=== PATIENT | female | born 1995 | race African-American/Black ===

== ENCOUNTER 2016-10-28 12:37 | Emergency (ER) | payer MEDICAID ==
--- NOTE | 2016-10-28 13:01 | ED Physician Chart ---
Chief Complaint/HPI - Patient Information Date Seen:: 10/28/16 Time Seen:: 13:01 Chief Complaint:: DIARRHEA X 3 DAYS, LIGHTHEADED History of Present Illness:: This 21-year-old female presents with a three-day history of diarrhea with a total of 7-8 episodes. She also has nausea but no vomiting. Denies any abdominal pain. Has lost her appetite. Patient states that when she stands up too fast she feels lightheaded. Had a syncopal episode a month or so ago. Is currently on her menstrual period. Had 1 prior that resulted in in a miscarriage. No history of prior surgeries in the patient denies a history of any medical problems. She smoked crystal met earlier today. No fever and no chills. Patient thinks that she may have eaten some bad food. Allergies:: Allergies Allergy/AdvReac Type Severity Reaction Status Date / Time No Known Allergies Allergy Verified 10/28/16 12:48 Vitals:: Vital Signs - 8 hr 10/28/16 12:51 BP 129/86 Review of Systems - Review of Systems General/Constitutional: No fever, No chills, No weakness, Diaphoresis, No edema , Loss of appetite Skin: No skin lesions, No rash Head: No headache, Light headed Eyes: No loss of vision, No pain (patient states that she has allergies and that her eyes have been red and watery.), No diplopia ENT: No earache, No nasal drainage, No sore throat Neck: No neck pain, No stiffness Cardio Vascular: No chest pain, No palpitations, No PND, No orthopnea, No edema Pulmonary: No SOB, No cough, No sputum, No wheezing GI: Nausea, No vomiting, Diarrhea, No pain, No melena, No constipation, No hematemesis G/U: No dysuria, No frequency, No hematuria Freight Sorter: Other (patient is currently having her menstrual period. ) Endocrine: No polyuria, No polydipsia Psychiatric: No prior psych history, No depression, No suicidal ideation Hematopoietic: No bruising, No lymphadenopathy Allergic/Immuno: No urticaria, No angioedema Neurological: Syncope (syncopal episode approximately one month ago.), No focal symptoms, No weakness, No paresthesia, No headache, No seizure, Dizziness (has lightheadedness when she stands up too quickly.), No confusion, No vertigo Past Medical History - Past Medical History Past Medical History: No significant medical hx Family History: None Social History: Smoker, No Alcohol, Illicit Drug Use, Single, Employed (works as a office cashier.) Employment:: Admits to using methamphetamine earlier today. She lives with her brother. Family Medical History - Family Member Mother Ethnicity: Non- Living Status: Still Living Hx Family Cancer: Yes Hx Family Coronary Artery Disease: No Hx Family Congestive Heart Failure: No Hx Family Hypertension: No Hx Family Stroke: No Hx Family Diabetes: No Hx Family Seizures: No Hx Family Dementia: No Hx Family AIDS: No Hx Family HIV: No Hx Family COPD: No Hx Family Hepatitis: No Hx Family Psychiatric Problems: No Hx Family Tuberculosis: No Physical Exam - Physical Examination General/Constitutional: Awake, Well-developed, well-nourished, Alert, No distress, Non-toxic appearing, Ambulatory Head: Atraumatic Eyes: PERRL, EOMI (patient has hyperemia of both conjunctiva. She also has tears bilaterally.) Skin: No rash, No skin lesions, No ecchymosis, Well hydrated, No lymphadenopathy ENMT: External ears, nose nl, TM canals nl, Nasal exam nl, Lips, teeth, gums nl , Oropharynx nl, Tonsils nl Neck: Nontender, Full ROM w/o pain, No JVD, No nuchal rigidity, No mass, No stridor Respiratory: Nl effort/Exclusion, Clear to Auscultation, No Wheeze/Rhonchi/Rales Cardio Vascular: RRR, No murmur, gallop, rubs, NL S1 S2 Other Cardio Vascular comments:: Strong pulses in all 4 extremities. GI: No tenderness/rebounding/guarding, No organomegaly, No hernia, Normal BS's, Nondistended, No mass/bruits, No McBurney tenderness Other GI comments:: Rectal examination was deferred at my discretion. : No CVA tenderness Extremities: No tenderness or effusion, Full ROM, normal strength in all extremities, No edema, Normal digits & nails Neuro/Psych: Alert/oriented, Normal sensory exam, Normal motor strength, Mood normal, Normal gait, No focal deficits Misc: Normal back, No paraspinal tenderness Labs/Radiology/EKG Results - Lab Results Results: Laboratory Tests 10/28/16 10/28/16 10/28/16 13:12 13:12 13:12 WBC 6.5 RBC 4.83 Hgb 13.0 Hct 38.8 MCV 80.4 L MCH 26.9 L MCHC Differential 33.4 RDW 13.8 Plt Count 237 MPV 9.3 Neutrophils % 57.8 Lymphocytes % 35.0 Monocytes % 3.4 Eosinophils % 1.3 Basophils % 2.5 H Sodium 134 L Potassium 3.1 L Chloride 107 Carbon Dioxide 25.9 Anion Gap 4.2 L BUN 12 Creatinine 0.8 Est GFR ( Amer) > 60.0 Est GFR (Non-Af Amer) > 60.0 BUN/Creatinine Ratio 15.0 Glucose 104 Calcium 9.2 Urine Source Urine Color Urine Clarity Urine pH Ur Specific Telephone Urine Protein Urine Glucose (UA) Urine Ketones Urine Blood Urine Nitrate Urine Bilirubin Urine Urobilinogen Ur Leukocyte Esterase Urine RBC Urine WBC Ur Epithelial Cells Urine Bacteria Urine Test NEGATIVE 10/28/16 13:12 WBC RBC Hgb Hct MCV MCH MCHC Differential RDW Plt Count MPV Neutrophils % Lymphocytes % Monocytes % Eosinophils % Basophils % Sodium Potassium Chloride Carbon Dioxide Anion Gap BUN Creatinine Est GFR ( Amer) Est GFR (Non-Af Amer) BUN/Creatinine Ratio Glucose Calcium Urine Source RANDOM Urine Color YELLOW Urine Clarity SLIGHT HAZY Urine pH 5.5 Ur Specific Telephone 1.015 Urine Protein NEGATIVE Urine Glucose (UA) NEGATIVE Urine Ketones NEGATIVE Urine Blood LARGE H Urine Nitrate NEGATIVE Urine Bilirubin NEGATIVE Urine Urobilinogen 0.2 Ur Leukocyte Esterase NEGATIVE Urine RBC 0-2 Urine WBC 0-2 Ur Epithelial Cells FEW Urine Bacteria FEW Urine Test Laboratory interpretation: Patient has no leukocytosis or anemia and there is mild hypokalemia and hyponatremia. This will be addressed with by mouth potassium and the patient will be advised to obtain Imodium at the drugstore. Assessment - Assessment General Assessment: CASE SUMMARY: this 21-year-old female presents with a three day history of diarrhea, total of 7 to 8 episodes, nausea and lightheadedness. The lightheadedness occurs when she stands up quickly. She has had nausea and no act of vomiting. She states that she was smoking crystal met earlier this a.m. Patient refused IV rehydration with normal saline. Chemistry showed a CBC that was within normal parameters. She had mild hyponatremia and hypokalemia. Renal function studies were within normal limits. Lactic acid was within normal limits. She was given supplemental PO potassium for treatment of hypokalemia. She was advised to purchase Imodium, which is [id number] at a drugstore for any further diarrhea. The patient was discharged with a prescription for oral potassium. MDM: DDX FOR LIGHT HEADEDNESS: NOT base on neg HCG Study. NOT Dehydration based on lab studies and physical exam. NOT coronary heart diseae based on the patient's age and history. ED Septic Shock - . Is Septic Shock (SBP<90, OR Lactate>4 mmol\L) present?: No - <6hrs of presentation: Vital Signs: Vital Signs - 8 hr 10/28/16 12:51 BP 129/86 Reassessment (Disposition) - Reassessment Reassessment Condition:: Improved - Diagnosis Diagnosis:: DIARRHEA, HYPOKALEMIA, METHAMPHETAMINE ABUSE - Aftercare/Follow up Instructions Aftercare/Follow-Up Instructions:: Counseled pt regarding lab results/diagnosis & need follow up, Counseled pt & family regarding lab results/diagnosis & need follow up - Patient Disposition Discharge/Transfer:: Home ED Discharge Plan - Patient Disposition Admit/Discharge/Transfer: PT DISCHARGED HOME Condition at Disposition: Stable Prescriptions: K-Dur 40 meq PO BID #30 Instructions: Hypokalemia, Diet for Diarrhea, Adult Additional Instructions: 1430- May ask pharmacist to issue k-dur in soluble form, Immodium otc, andstop Meth.use. Forms: Work Release Form
[2016-10-28] MEDS ORDERED: Sodium Chloride 0.9% 1,000 ML IV ONE (13:16)
[2016-10-28 13:30] LABS: % BASOPHILS 2.5 % (0.0-2.0); % EOSINOPHILS 1.3 % (0.0-5.0); % MONOCYTES 3.4 % (2.0-10.0); % NEUTROPHILS 57.8 % (40.0-80.0); HEMATOCRIT 38.8 % (35.0-45.0); MEAN CELL VOLUME 80.4 fl (81-100); MEAN CORPUSCULAR HEMOGLOBIN 26.9 pg (27.0-31.0); MEAN CORPUSCULAR HGB CONC 33.4 pg (28.0-36.0); MEAN PLATELET VOLUME 9.3 fl; NEUTROPHILE ABSOLUTE 3.7 Th/cmm (1.8-8.0); PLATELET COUNT 237 Th/cmm (150-400); RED BLOOD COUNT 4.83 Mil/cmm (3.80-5.10); RED CELL DISTRIBUTION WIDTH 13.8 % (11.5-20.0); WHITE BLOOD COUNT 6.5 Th/cmm (4.8-10.8)
[2016-10-28 13:36] VITALS: BP 129/86
[2016-10-28 13:45] LABS: URINE COLOR YELLOW
[2016-10-28 13:46] LABS: URINE BILIRUBIN NEGATIVE (NEGATIVE); URINE BLOOD LARGE (NEGATIVE); URINE GLUCOSE (UA) NEGATIVE (NEGATIVE); URINE KETONE NEGATIVE (NEGATIVE); URINE PH 5.5; URINE PROTEIN NEGATIVE (NEGATIVE); URINE UROBILINOGEN 0.2 E.U./dL (0.2 - 1.0)
[2016-10-28 13:47] LABS: ANION GAP 4.2 (7.0-16.0); BUN - UREA NITROGEN 12 mg/dL (7-25); CALCIUM SERUM 9.2 mg/dL (8.6-10.3); CARBON DIOXIDE 25.9 mEq/L (21.0-31.0); CHLORIDE 107 mEq/L (98-107); CREATININE - SERUM 0.8 mg/dL (0.6-1.2); GLUCOSE 104 mg/dL (70-105); POTASSIUM SERUM 3.1 mEq/L (3.5-5.1); SODIUM SERUM 134 mEq/L (136-145); URINE BACTERIA FEW /hpf (NONE SEEN); URINE EPITHELIAL CELLS FEW /lpf (FEW); URINE RBC 0-2 /hpf (0-5); URINE WBC 0-2 /hpf (0-5)
[2016-10-28] MEDS ORDERED: Potassium Chloride 20 mEq ER Tab PO ONE (14:10)
[2016-10-28] MEDS ORDERED: Potassium Chloride Elixir 20 mEq /15 mL UDC ONE (14:18)
== END 2016-10-28 14:40 | disposition home or self-care (01) ==
LOC: ER 12:37
DX: R19.7 Diarrhea, unspecified (principal); E87.6 Hypokalemia; F15.10 Other stimulant abuse, uncomplicated; F17.200 Nicotine dependence, unspecified, uncomplicated
CPT/HCPCS: 36415-UA; 80048-TC; 81001-TC; 81025-TC; 85025-TC; Z7502